=== PATIENT | female | born 1995 | race Asian ===

== ENCOUNTER 2019-11-22 16:43 | Emergency (ER) | payer OTHER ==
--- NOTE | 2019-11-22 17:15 | ED Physician Documentation ---
History of Present Illness - Stated complaint Stated Complaint: MENG,BODY ACHES,NAUSEA - Chief complaint Chief Complaint: General - History obtained from History obtained from: Patient - History of Present Illness Timing: How many days ago (3) Pain level max: 0 Pain level now: 0 - Additonal information Additional information: 24-year-old female is visiting from [place]. She states that she is concerned that she may have COVID. No cough. No fever. She states occasionally she has body aches. No respiratory distress. Denies any possibility of . Not on any medications at home. Review of Systems Ten Systems: 10 systems reviewed and negative Constitutional: denies: Fever, Chills Respiratory: denies: Cough GI: denies: Abdominal Pain, Nausea, Vomiting, Diarrhea Skin: denies: Rash Musculoskeletal: denies: Neck pain, Back pain Neurologic: reports: Headache (mild, holocranial, gradual onset.). denies: Se izure, Confused, Head injury, LOC PD PAST MEDICAL HISTORY - Past Medical History Past Medical History: No - Past Surgical History Past Surgical History: No - Allergies Allergies/Adverse Reactions: Allergies Allergy/AdvReac Type Severity Reaction Status Date / Time No Known Drug Allergies Allergy Verified 11/22/19 16:56 - Social History Does the pt smoke?: No Smoking Status: Never smoker Does the pt drink ETOH?: Yes Does the pt have substance abuse?: No - Immunizations Immunizations are current?: Yes PD ED PE NORMAL - Vitals Vital signs reviewed: Yes - General General: Alert and oriented X 3, No acute distress - HEENT HEENT: PERRL, Ears normal, Moist mucous membranes, Pharynx benign - Neck Neck: Supple, no meningeal sign, No adenopathy - Cardiac Cardiac: RRR - Respiratory Respiratory: No respiratory distress, Clear bilaterally - Abdomen Abdomen: Soft, Non tender, Non distended - Derm Derm: Warm and dry, No rash - Extremities Extremities: No edema - Neuro Neuro: Alert and oriented X 3 - Psych Psych: Normal mood Results - Vitals Vitals: Vital Signs - 24 hr 11/22/19 16:50 Temperature 36.9 C Heart Rate 72 Respiratory 16 Rate Blood Pressure 121/89 H O2 Saturation 99 Oxygen O2 Source Room air PD MEDICAL DECISION MAKING - ED course Complexity details: considered differential, d/w patient ED course: COVID testing performed. Patient does not want any further work-up at this time. Her exam is otherwise normal. Patient counseled regarding signs and symptoms for which I believe and urgent re-evaluation would be necessary. Patient with good understanding of and agreement to plan and is comfortable going home at this time This document was made in part using voice recognition software. While efforts are made to proofread this document, sound alike and grammatical errors may occur. Departure - Departure Disposition: 01 Home, Self Care Clinical Impression: Encounter for screening laboratory testing for COVID-19 virus Condition: Good Instructions: ED Viral Syndrome Follow-Up: your,doctor in 1 week [Other] Comments: The COVID test will be back in 24-72 hours. Return if you worsen. Follow up with your doctor for further care. Self quarantine until your test is negative.
[2019-11-22 17:34] VITALS: BP 114/78
== END 2019-11-22 17:32 | disposition home or self-care (01) ==
LOC: ED 16:43
DX: M79.10 Myalgia, unspecified site (principal); R51 Headache; Z20.828 Contact with and (suspected) exposure to other viral communicable diseases
CPT/HCPCS: 99282; 99283

== ENCOUNTER 2021-07-27 06:49 | Emergency (ER) | payer OTHER ==
[2021-07-27 07:26] LABS: BILIRUBIN,URINE NEGATIVE (NEGATIVE); GLUCOSE, URINE (UA) NEGATIVE (NEGATIVE); KETONES,URINE (UA) NEGATIVE (NEGATIVE); LEUKOCYTE ESTERASE, URINE NEGATIVE (NEGATIVE); NITRITE,URINE NEGATIVE (NEGATIVE); OCCULT BLOOD,URINE MODERATE (NEGATIVE); PROTEIN,URINE NEGATIVE (NEGATIVE); UROBILINOGEN,URINE 0.2 (NORMAL) E.U./dL (NORMAL)
[2021-07-27 07:27] LABS: CLARITY,URINE CLEAR (CLEAR)
[2021-07-27 07:39] LABS: BACTERIA,URINE Few /HPF (None Seen); RBC,URINE 0-5 /HPF (0-5); SQUAMOUS EPITHELIAL CELL,UR FEW Squamous (<= Few); WBC,URINE 0-3 /HPF (0-5)
--- NOTE | 2021-07-27 08:17 | ED Physician Documentation ---
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 She reports that she is certain the conception would have been in June. She estimates 6-7 weeks. She has had a home test. She is visiting from [place]. Review of Systems Constitutional: denies: Fever Ears: denies: Ear pain Nose: denies: Congestion Throat: denies: Sore throat Respiratory: denies: Cough GI: reports: Abdominal Pain. denies: Vomiting : reports: Vaginal bleeding. denies: Dysuria, Frequency Skin: denies: Rash Musculoskeletal: denies: Neck pain, Back pain, Extremity pain PD PAST MEDICAL HISTORY - Past Medical History Past Medical History: No Cardiovascular: None Respiratory: None Neuro: None Endocrine/Autoimmune: None GI: None DIAL PAINTER: None : None HEENT: None Psych: None Musculoskeletal: None Derm: None - Past Surgical History Past Surgical History: No - Present Medications Home Medications: Ambulatory Orders Medication Instructions Recorded Confirmed No Known Home Medications 07/27/21 07/27/21 - Allergies Allergies/Adverse Reactions: Allergies Allergy/AdvReac Type Severity Reaction Status Date / Time No Known Drug Allergies Allergy Verified 07/27/21 06:55 - Social History Does the pt smoke?: No Smoking Status: Never smoker Does the pt drink ETOH?: Yes Does the pt have substance abuse?: No - Immunizations Immunizations are current?: Yes PD ED PE NORMAL - Vitals Vital signs reviewed: Yes (hypertensive mild ) - General General: Alert and oriented X 3, No acute distress, Well developed/nourished - HEENT HEENT: Atraumatic, PERRL, EOMI - Neck Neck: Supple, no meningeal sign, No bony TTP - Cardiac Cardiac: RRR, No murmur - Respiratory Respiratory: No respiratory distress, Clear bilaterally - Abdomen Abdomen: Soft, Other (mild discomfort with suprapubic palpation .) - Back Back: No CVA TTP, No spinal TTP - Derm Derm: Normal color, Warm and dry, No rash - Extremities Extremities: No deformity, No edema - Neuro Neuro: Alert and oriented X 3, emergency operator 2-12 intact, No motor deficit, No sensory deficit, Normal speech Eye Opening: Spontaneous Motor: Obeys Commands Verbal: Oriented GCS Score: 15 - Psych Psych: Normal mood, Normal affect Results - Vitals Vitals: Vital Signs - 24 hr 07/27/21 07/27/21 07/27/21 06:55 07:21 08:50 Temperature 36.5 C Heart Rate 82 67 70 Respiratory 15 16 17 Rate Blood Pressure 131/85 H 129/81 H 122/76 O2 Saturation 100 100 99 Oxygen O2 Source Room air - Labs Labs: Laboratory Tests 07/27/21 07/27/21 07:20 07:26 HCG, Quant 149.99 Urine Color YELLOW Urine Clarity CLEAR Urine pH 6.0 Ur Specific [place] >=1.030 H Urine Protein NEGATIVE Urine Glucose (UA) NEGATIVE Urine Ketones NEGATIVE Urine Occult Blood MODERATE H Urine Nitrite NEGATIVE Urine Bilirubin NEGATIVE Urine Urobilinogen 0.2 (NORMAL) Ur Leukocyte Esterase NEGATIVE Urine RBC 0-5 Urine WBC 0-3 Ur Squamous Epith Cells FEW Squamous Urine Bacteria Few Ur Microscopic Review INDICATED Urine Culture Comments NOT INDICATED PD MEDICAL DECISION MAKING - ED course Complexity details: reviewed results, re-evaluated patient, considered differential, d/w patient, d/w family ED course: 26-year-old female with early has a quantitative hCG of 149 and there are no findings on imaging. Concerning for early miscarriage versus ectopic. I discussed the case with the patient to have her hCG redrawn in 2 days. I suspect this unlikely to be an ectopic as the patient reports a positive test on 07/13/2021 and only has a quantitative hCG of 149 2 weeks later. pelvic ultrasound: Impression: Unremarkable sonographic evaluation of the uterus and ovaries; no intrauterine gestation visualized at this time. Given presence of positive test with beta hCG level of 150, findings may represent an early normal although missed spontaneous may have a similar appearance. Ectopic is conceivable but thought unlikely on today's evaluation. Recommend continued clinical and laboratory surveillance with follow-up imaging as needed. Departure - Departure Disposition: 01 Home, Self Care Clinical Impression: Spotting in early Condition: Stable Instructions: ED Abdominal Pain Rule Out Ectopic Follow-Up: [facility] [Provider Group] Comments: Shanita, today we were unable to view any fetus and there is a concern for the potential for ectopic . Today your quantitative hCG number was 149. This is a low number and we would not expect to see something on ultrasound at this stage of . Alternatively this number can be going down and the failing. Under the circumstances it is important to have a second quantitative hCG done in the next 2 days. This will either confirm that a miscarriage is happening with a lower number, or that further surveillance is required for an elevated number. Discharge Date/Time: 07/27/21 08:51
[2021-07-27 08:51] VITALS: BP 122/76
--- NOTE | 2021-07-27 09:14 | Ultrasound Report ---
PROCEDURE: OB First Trimester INDICATIONS: bleeding early ; quantitative beta-hCG level of 150 OUTSIDE/PRIOR DATING DATA: Last menstrual period (LMP): 05/17/2021. LMP-based estimated date of delivery (WOOD): 02/21/2022. First dating scan (date and location): 07/27/2021 TECHNIQUE: Real-time scanning was performed of the fetus and maternal pelvic organs, with image documentation. COMPARISON: None. FINDINGS: Uterus is unremarkable in appearance. No evidence for intrauterine gestation identified at this time. No decidual reaction of the endometrium identified. Embryo: No intrauterine gestation identified at this time. Measurement variability in dating: +/- 4 weeks by LMP, +/- 7 days by mean sac diameter (use before 6 weeks gestation if crown-rump length not able to be measured), +/- 5 days by crown-rump length (6-12 weeks gestation). Maternal organs: Ovaries appear normal bilaterally. No pelvic free fluid. No suspicious adnexal mass es. IMPRESSION: Unremarkable sonographic evaluation of the uterus and ovaries; no intrauterine gestation visualized a t this time. Given presence of positive test with beta hCG level of 150, findings may repre sent an early normal although missed spontaneous may have a similar appearance. Ec topic is conceivable but thought unlikely on today's evaluation. Recommend continued clinical and laboratory surveillance with follow-up imaging as needed. Reviewed by: Tacho Flores MD on 07/27/2021 9:13 AM PDT Approved by: Tacho Flores MD on 07/27/2021 9:13 AM PDT Station ID: [id number]
== END 2021-07-27 08:51 | disposition home or self-care (01) ==
LOC: ED 06:49
DX: O20.9 Hemorrhage in early pregnancy, unspecified (principal); Z3A.00 Weeks of gestation of pregnancy not specified
CPT/HCPCS: 36415; 81001; 81003; 84702; 87086; 99282; 99284